=== PATIENT | male | born 1955 | race Caucasian/White ===

== ENCOUNTER 2024-07-01 18:20 | Emergency (ER) | payer OTHER ==
[2024-07-01 18:26] VITALS: BP 125/78; PULSE 86; RESP 18; TEMP 98.3; BMI 29.8
== END 2024-07-01 20:13 | disposition home or self-care (01) ==
LOC: JERFT 18:20
DX: L23.7 Allergic contact dermatitis due to plants, except food (principal); R21 Rash and other nonspecific skin eruption; L29.9 Pruritus, unspecified
CPT/HCPCS: 99283-25